=== PATIENT | male | born 1945 | race Caucasian/White ===

== ENCOUNTER 2016-04-11 07:57 | Outpatient (CLI) | payer MEDICARE, OTHER | END 2016-04-11 07:58 | disposition home or self-care (01) | DX: R51 Headache (principal); M50.30 Other cervical disc degeneration, unspecified cervical region ==

== ENCOUNTER 2016-04-13 07:42 | Outpatient (CLI) | payer MEDICARE, OTHER ==
[2016-04-13] MEDS ORDERED: GADOBUTROL 7.5 MMOL/7.5 ML VIAL IVP ONE (09:09)
== END 2016-04-13 07:43 | disposition home or self-care (01) ==
DX: R51 Headache (principal); M50.322 Other cervical disc degeneration at C5-C6 level; M47.9 Spondylosis, unspecified
CPT/HCPCS: 70553; 72141; A9585

== ENCOUNTER 2016-06-26 08:36 | Outpatient (CLI) | payer MEDICARE, OTHER | END 2016-06-26 08:37 | disposition home or self-care (01) | DX: E78.5 Hyperlipidemia, unspecified (principal) ==

== ENCOUNTER 2016-08-27 16:29 | Outpatient (CLI) | payer MEDICARE, OTHER ==
[2016-08-27 13:34] LABS: BILIRUBIN,DIRECT 0.1 mg/dL (0.1-0.5); BILIRUBIN,TOTAL 0.9 mg/dL (0.2-1.0); CHOL/HDL RATIO 2.8 (<5.0); CHOLESTEROL 89 mg/dL; HDL CHOLESTEROL 32 mg/dL; LDL/HDL RATIO 0.6 (<3.6); TOTAL PROTEIN 6.8 g/dL (6.7-8.2); TRIGLYCERIDES 189 mg/dL; VLDL CHOLESTEROL 38 mg/dL
== END 2016-08-27 16:30 | disposition home or self-care (01) ==
LOC: LAB.WCP 16:29
PROVIDERS: ATTEND Family Medicine
DX: E78.5 Hyperlipidemia, unspecified (principal)
CPT/HCPCS: 36415; 80061; 80076

== ENCOUNTER 2017-03-18 15:13 | Outpatient (CLI) | payer MEDICARE, OTHER ==
[2017-03-18 13:26] LABS: CHOL/HDL RATIO 3.2 (<5.0); CHOLESTEROL 113 mg/dL; HDL CHOLESTEROL 35 mg/dL; LDL/HDL RATIO 0.9 (<3.6); TRIGLYCERIDES 237 mg/dL; VLDL CHOLESTEROL 47 mg/dL
== END 2017-03-18 15:14 | disposition home or self-care (01) ==
LOC: LAB.WCP 15:13
PROVIDERS: ATTEND Family Medicine
DX: E78.5 Hyperlipidemia, unspecified (principal)
CPT/HCPCS: 36415; 80061

== ENCOUNTER 2017-06-03 08:00 | Outpatient (CLI) | payer MEDICARE, OTHER ==
[2017-06-03 13:51] LABS: ALBUMIN 3.8 g/dL (3.2-5.5); ALBUMIN/GLOBULIN RATIO 1.5 (1.0-2.2); ALKALINE PHOSPHATASE 66 IU/L (42-121); ALT ALANINE AMINOTRANSFERASE 39 IU/L (10-60); AST ASPARTATE AMINOTRANSFERASE 28 IU/L (10-42); BILIRUBIN,TOTAL 0.6 mg/dL (0.2-1.0); BUN - BLOOD UREA NITROGEN 22 mg/dL (6-20); CALCIUM 8.6 mg/dL (8.5-10.3); CARBON DIOXIDE - CO2 24 mmol/L (21-32); CHLORIDE 109 mmol/L (101-111); CHOL/HDL RATIO 3.8 (<5.0); CHOLESTEROL 120 mg/dL; CREATININE 1.2 mg/dL (0.6-1.2); GFR - MDRD 59 (>89); GLUCOSE 91 mg/dL (70-100); HDL CHOLESTEROL 32 mg/dL; LDL CHOLESTEROL,CALCULATED 26 mg/dL; LDL/HDL RATIO 0.8 (<3.6); SODIUM 136 mmol/L (135-145); TOTAL PROTEIN 6.3 g/dL (6.7-8.2); VLDL CHOLESTEROL 62 mg/dL
[2017-06-03 13:53] LABS: HEMOGLOBIN A1C 0.56 g/dL; HEMOGLOBIN A1C % 5.4 % (4.6-6.2)
== END 2017-06-03 08:01 | disposition home or self-care (01) ==
LOC: LAB.WCP 08:00
PROVIDERS: ATTEND Family Medicine
DX: E74.39 Other disorders of intestinal carbohydrate absorption (principal); R73.09 Other abnormal glucose; E78.5 Hyperlipidemia, unspecified; Z12.5 Encounter for screening for malignant neoplasm of prostate; I10 Essential (primary) hypertension; K50.80 Crohn's disease of both small and large intestine without complications
CPT/HCPCS: 36415; 80053; 80061; 83036; G0103; 83721; 84153

== ENCOUNTER 2017-07-23 08:00 | Outpatient (CLI) | payer MEDICARE, OTHER ==
[2017-07-23 12:58] LABS: CHOL/HDL RATIO 4.1 (<5.0); CHOLESTEROL 114 mg/dL; HDL CHOLESTEROL 28 mg/dL; LDL CHOLESTEROL,CALCULATED 30 mg/dL; LDL/HDL RATIO 1.1 (<3.6); VLDL CHOLESTEROL 56 mg/dL
== END 2017-07-23 08:01 | disposition home or self-care (01) ==
LOC: LAB.WCP 08:00
PROVIDERS: ATTEND Family Medicine
DX: E78.5 Hyperlipidemia, unspecified (principal); Z79.899 Other long term (current) drug therapy
CPT/HCPCS: 36415; 80061; 83721

== ENCOUNTER 2017-08-15 08:00 | Outpatient (CLI) | payer MEDICARE, OTHER ==
[2017-08-15 13:41] LABS: CHOL/HDL RATIO 3.5 (<5.0); CHOLESTEROL 98 mg/dL; HDL CHOLESTEROL 28 mg/dL; LDL CHOLESTEROL,CALCULATED 32 mg/dL; LDL/HDL RATIO 1.1 (<3.6); VLDL CHOLESTEROL 38 mg/dL
== END 2017-08-15 08:01 | disposition home or self-care (01) ==
LOC: LAB.WCP 08:00
PROVIDERS: ATTEND Family Medicine
DX: E78.5 Hyperlipidemia, unspecified (principal); E74.39 Other disorders of intestinal carbohydrate absorption
CPT/HCPCS: 36415; 80061; 83721; 84443

== ENCOUNTER 2017-10-27 08:57 | Outpatient (CLI) | payer MEDICARE, OTHER ==
[2017-10-27 09:52] LABS: CHOL/HDL RATIO 3.8 (<5.0); CHOLESTEROL 118 mg/dL; HDL CHOLESTEROL 31 mg/dL; LDL CHOLESTEROL,CALCULATED 44 mg/dL; LDL/HDL RATIO 1.4 (<3.6); VLDL CHOLESTEROL 43 mg/dL
== END 2017-10-27 08:58 | disposition home or self-care (01) ==
LOC: LAB 08:57
PROVIDERS: ATTEND Family Medicine
DX: E78.5 Hyperlipidemia, unspecified (principal)
CPT/HCPCS: 36415; 80061; 83721

== ENCOUNTER 2017-12-03 08:00 | Outpatient (CLI) | payer MEDICARE, OTHER ==
[2017-12-03 13:05] LABS: ALBUMIN 3.9 g/dL (3.2-5.5); ALKALINE PHOSPHATASE 52 IU/L (42-121); ALT ALANINE AMINOTRANSFERASE 22 IU/L (10-60); AST ASPARTATE AMINOTRANSFERASE 22 IU/L (10-42); BILIRUBIN,DIRECT 0.1 mg/dL (0.1-0.5); BILIRUBIN,TOTAL 0.6 mg/dL (0.2-1.0); CHOL/HDL RATIO 3.6 (<5.0); CHOLESTEROL 105 mg/dL; HDL CHOLESTEROL 29 mg/dL; LDL CHOLESTEROL,CALCULATED 42 mg/dL; LDL/HDL RATIO 1.4 (<3.6); TOTAL PROTEIN 6.3 g/dL (6.7-8.2); VLDL CHOLESTEROL 34 mg/dL
== END 2017-12-03 08:01 | disposition home or self-care (01) ==
LOC: LAB.WCP 08:00
PROVIDERS: ATTEND Family Medicine
DX: E78.5 Hyperlipidemia, unspecified (principal); R74.8 Abnormal levels of other serum enzymes
CPT/HCPCS: 36415; 80061; 80076; 83721

== ENCOUNTER 2018-04-06 09:20 | Outpatient (CLI) | payer MEDICARE, OTHER ==
[2018-04-06 09:38] LABS: BASOPHILS % (AUTO) 0.3 %; EOSINOPHILS # (AUTO) 0.1 10^3/uL (0.0-0.7); EOSINOPHILS % (AUTO) 1.8 %; HGB - HEMOGLOBIN 14.6 g/dL (14.0-18.0); LYMPHOCYTES # (AUTO) 1.5 10^3/uL (1.5-3.5); LYMPHOCYTES % (AUTO) 23.7 %; MEAN CORPUSCULAR HEMOGLOBIN 32.8 pg (27.0-31.0); MEAN CORPUSCULAR HGB CONC 34.5 g/dL (32.0-36.0); MEAN PLATELET VOLUME 7.7 fL (7.4-11.4); MONOCYTES # (AUTO) 0.6 10^3/uL (0.0-1.0); MONOCYTES % (AUTO) 8.9 %; NEUTROPHILS # (AUTO) 4.1 10^3/uL (1.5-6.6); NEUTROPHILS % (AUTO) 65.3 %; PLT - PLATELET COUNT 185 10^3/uL (130-450); RED BLOOD COUNT 4.45 10^6/uL (4.70-6.10); RED CELL DISTRIBUTION WIDTH 13.3 % (12.0-15.0); WHITE BLOOD COUNT 6.3 x10^3/uL (4.8-10.8)
[2018-04-06 09:57] LABS: ALBUMIN 4.2 g/dL (3.2-5.5); ALBUMIN/GLOBULIN RATIO 1.6 (1.0-2.2); ALKALINE PHOSPHATASE 49 IU/L (42-121); ALT ALANINE AMINOTRANSFERASE 36 IU/L (10-60); AST ASPARTATE AMINOTRANSFERASE 26 IU/L (10-42); BILIRUBIN,TOTAL 0.7 mg/dL (0.2-1.0); BUN - BLOOD UREA NITROGEN 31 mg/dL (6-20); CALCIUM 9.3 mg/dL (8.5-10.3); CARBON DIOXIDE - CO2 24 mmol/L (21-32); CHLORIDE 108 mmol/L (101-111); CHOL/HDL RATIO 3.1 (<5.0); CHOLESTEROL 100 mg/dL; CREATININE 1.5 mg/dL (0.6-1.2); GFR - MDRD 46 (>89); GLUCOSE 106 mg/dL (70-100); HDL CHOLESTEROL 32 mg/dL; LDL CHOLESTEROL,CALCULATED 36 mg/dL; LDL/HDL RATIO 1.1 (<3.6); SODIUM 138 mmol/L (135-145); TOTAL PROTEIN 6.9 g/dL (6.7-8.2); VLDL CHOLESTEROL 32 mg/dL
== END 2018-04-06 09:21 | disposition home or self-care (01) ==
LOC: LAB 09:20
PROVIDERS: ATTEND Family Medicine
DX: M43.02 Spondylolysis, cervical region (principal); E78.5 Hyperlipidemia, unspecified; I10 Essential (primary) hypertension
CPT/HCPCS: 36415; 80053; 80061; 83721; 84443; 85025

== ENCOUNTER 2018-05-07 11:03 | Outpatient (CLI) | payer MEDICARE, OTHER ==
[2018-05-07 11:50] LABS: ALBUMIN 4.2 g/dL (3.2-5.5); ALBUMIN/GLOBULIN RATIO 1.5 (1.0-2.2); ALKALINE PHOSPHATASE 67 IU/L (42-121); ALT ALANINE AMINOTRANSFERASE 47 IU/L (10-60); AST ASPARTATE AMINOTRANSFERASE 31 IU/L (10-42); BILIRUBIN,TOTAL 0.9 mg/dL (0.2-1.0); BUN - BLOOD UREA NITROGEN 24 mg/dL (6-20); CALCIUM 8.9 mg/dL (8.5-10.3); CARBON DIOXIDE - CO2 24 mmol/L (21-32); CHLORIDE 106 mmol/L (101-111); CHOL/HDL RATIO 3.5 (<5.0); CHOLESTEROL 119 mg/dL; CREATININE 1.1 mg/dL (0.6-1.2); GFR - MDRD 65 (>89); GLUCOSE 103 mg/dL (70-100); HDL CHOLESTEROL 34 mg/dL; LDL CHOLESTEROL,CALCULATED 36 mg/dL; LDL/HDL RATIO 1.1 (<3.6); SODIUM 136 mmol/L (135-145); VLDL CHOLESTEROL 49 mg/dL
== END 2018-05-07 11:04 | disposition home or self-care (01) ==
LOC: LAB 11:03
PROVIDERS: ATTEND Family Medicine
DX: R79.89 Other specified abnormal findings of blood chemistry (principal); I10 Essential (primary) hypertension; E78.5 Hyperlipidemia, unspecified
CPT/HCPCS: 36415; 80053; 80061; 83721

== ENCOUNTER 2018-06-23 08:09 | Outpatient (CLI) | payer MEDICARE, OTHER ==
[2018-06-23 09:23] LABS: ALBUMIN 3.9 g/dL (3.2-5.5); ALBUMIN/GLOBULIN RATIO 1.4 (1.0-2.2); ALKALINE PHOSPHATASE 59 IU/L (42-121); ALT ALANINE AMINOTRANSFERASE 33 IU/L (10-60); AST ASPARTATE AMINOTRANSFERASE 25 IU/L (10-42); BILIRUBIN,TOTAL 0.8 mg/dL (0.2-1.0); BUN - BLOOD UREA NITROGEN 21 mg/dL (6-20); CALCIUM 8.8 mg/dL (8.5-10.3); CARBON DIOXIDE - CO2 24 mmol/L (21-32); CHLORIDE 105 mmol/L (101-111); CHOLESTEROL 103 mg/dL; CREATININE 1.2 mg/dL (0.6-1.2); GFR - MDRD 59 (>89); GLUCOSE 102 mg/dL (70-100); HDL CHOLESTEROL 26 mg/dL; LDL CHOLESTEROL,CALCULATED 41 mg/dL; LDL/HDL RATIO 1.6 (<3.6); SODIUM 138 mmol/L (135-145); TOTAL PROTEIN 6.7 g/dL (6.7-8.2); VLDL CHOLESTEROL 36 mg/dL
[2018-06-23 09:25] LABS: HB2 TOTAL 15.7 g/dL; HEMOGLOBIN A1C 0.55 g/dL; HEMOGLOBIN A1C % 5.4 % (4.6-6.2)
== END 2018-06-23 08:10 | disposition home or self-care (01) ==
LOC: LAB 08:09
PROVIDERS: ATTEND Internal Medicine Endocrinology, Diabetes & Metabolism
DX: E78.5 Hyperlipidemia, unspecified (principal)
CPT/HCPCS: 36415; 80053; 80061; 81599; 82043; 82172; 82550; 83036; 83695; 83721; 84443

== ENCOUNTER 2018-10-07 07:25 | Outpatient (CLI) | payer MEDICARE, OTHER ==
[2018-10-07 07:56] LABS: ALBUMIN 4.2 g/dL (3.2-5.5); ALBUMIN/GLOBULIN RATIO 1.6 (1.0-2.2); ALKALINE PHOSPHATASE 58 IU/L (42-121); ALT ALANINE AMINOTRANSFERASE 23 IU/L (10-60); AST ASPARTATE AMINOTRANSFERASE 21 IU/L (10-42); BILIRUBIN,TOTAL 0.8 mg/dL (0.2-1.0); BUN - BLOOD UREA NITROGEN 25 mg/dL (6-20); CALCIUM 9.3 mg/dL (8.5-10.3); CARBON DIOXIDE - CO2 22 mmol/L (21-32); CHLORIDE 107 mmol/L (101-111); CHOL/HDL RATIO 3.3 (<5.0); CHOLESTEROL 121 mg/dL; CREATININE 1.3 mg/dL (0.6-1.2); GFR - MDRD 54 (>89); GLUCOSE 96 mg/dL (70-100); HDL CHOLESTEROL 37 mg/dL; LDL CHOLESTEROL,CALCULATED 38 mg/dL; SODIUM 140 mmol/L (135-145); TOTAL PROTEIN 6.9 g/dL (6.7-8.2); VLDL CHOLESTEROL 46 mg/dL
== END 2018-10-07 07:26 | disposition home or self-care (01) ==
LOC: LAB 07:25
PROVIDERS: ATTEND Family Medicine
DX: E78.5 Hyperlipidemia, unspecified (principal); I10 Essential (primary) hypertension
CPT/HCPCS: 36415; 80053; 80061; 83721